=== PATIENT | female | born 1995 | race African-American/Black ===

== ENCOUNTER 2023-01-08 12:54 | Emergency (ER) | payer OTHER ==
[~2023-01-08] VITALS: Ht 152.4 cm; Wt 49.9 kg
[2023-01-08] MEDS ORDERED: AMOX-CLAV 875-1 EACH PO (13:13)
== END 2023-01-08 13:27 | disposition home or self-care (01) ==
LOC: ED 12:54
DX: K08.89 Other specified disorders of teeth and supporting structures (principal); Z88.2 Allergy status to sulfonamides; Z88.8 Allergy status to other drugs, medicaments and biological substances